=== PATIENT | male | born 1960 | race Caucasian/White ===

== ENCOUNTER 2019-12-17 08:33 | Inpatient (IN) | payer MEDICAID, SELFPAY ==
[~2019-12-17] VITALS: Ht 182.9 cm; Wt 79.8 kg
--- NOTE | 2019-12-17 09:04 | NUR ---
KILN BURNER HELPER: PT TO ROOM FROM LOBBY
[2019-12-17 09:08] LABS: BASOPHILS % (AUTO) 1 % (0-1); EOSINOPHILS # (AUTO) 0.26 x10^3/uL (0-0.4); EOSINOPHILS % (AUTO) 4 % (1-7); LYMPHOCYTES # (AUTO) 1.84 x10^3/uL (1-3.4); LYMPHOCYTES % (AUTO) 27 % (22-44); MD NO; MEAN CORPUSCULAR HEMOGLOBIN 32.6 pg (27.5-34.5); MEAN CORPUSCULAR HGB CONC 33.7 g/dL (33.2-36.2); MEAN CORPUSCULAR VOLUME 96.9 fL (81-97); MEAN PLATELET VOLUME 9.9 fL (7.4-10.4); MONOCYTES # (AUTO) 0.63 x10^3/uL (0.2-0.8); MONOCYTES % (AUTO) 9 % (2-9); NEUTROPHILS # (AUTO) 3.95 x10^3/uL (1.8-6.8); NEUTROPHILS % (AUTO) 58 % (42-75); PLATELET COUNT 243 x10^3/uL (130-400); RED BLOOD COUNT 4.04 x10^6/uL (4.38-5.82); RED CELL DISTRIBUTION WIDTH 14.9 % (9.4-14.8)
[2019-12-17 09:21] LABS: ALBUMIN 3.7 g/dL (3.4-5.0); ANION GAP 7 mmol/L (5-15); CALCIUM 8.6 mg/dL (8.5-10.1); CHLORIDE 110 mmol/L (98-107); CREATININE 1.16 mg/dL (0.7-1.3)
--- NOTE | 2019-12-17 09:50 | NUR ---
PT WITH C/O LIGHTHEADINESS AND SOB BEGINNING TODAY WHILE AT WORK. PT DENIES CP AT THIS TIME. PT STATES HE HAS HX OF DVT AND WAS TAKING XARELTO. PT TO ALL MONITORS, ERMD IN TO EVAL PT, AWAITING ORDERS
--- NOTE | 2019-12-17 10:40 | NUR ---
PT UPDATED ON POC BY ERMD, PT NEEDING CTQA. PIV X2 INITIATED
[2019-12-17] MEDS ORDERED: ASPIRIN 81 MG TABLET CHEW PO ONE (11:00)
[2019-12-17] MEDS ORDERED: HEPARIN 5,000 UNITS/ML, 1ML IV ONE (11:00)
[2019-12-17] MEDS ORDERED: OMNIPAQUE 350 MG/ML, 100ML BOTTLE ONE (11:14)
[2019-12-17] MEDS ORDERED: HEPARIN 25,000 UNITS/250ML PMX 250 ML ONE (11:20)
[2019-12-17] MEDS ORDERED: HEPARIN 5,000 UNITS/ML, 1ML ONE (11:20)
[2019-12-17] MEDS ORDERED: ASPIRIN 81 MG TABLET CHEW ONE (11:21)
[2019-12-17] MEDS: HEPARIN 25,000 UNITS/250ML PMX 250 ML IV PRN (11:30)
[2019-12-17] MEDS ORDERED: SODIUM CHLORIDE FLUSH 10ML SYR IVF ONE (11:30)
[2019-12-17] MEDS ORDERED: AZITHROMYCIN 500 MG in SODIUM CHLORIDE 0.9% 250 ML IVPB ONE (11:30)
[2019-12-17] MEDS ORDERED: CEFTRIAXONE PMX 1GM/50ML 50 ML IVPB ONE (11:30)
--- NOTE | 2019-12-17 11:31 | NUR ---
HEPARIN GTT INITIATED, VERIFIED WITH ERMD WEIGHT BASED PROTOCOL TO BE USED. BC BEING DRAWN WILL HANG ABX ABLE
[2019-12-17] MEDS ORDERED: CEFTRIAXONE PMX 1GM/50ML 50 ML ONE (11:56)
[2019-12-17] MEDS ORDERED: ONDANSETRON 2MG/ML, 2ML IVPush PRN (12:00)
[2019-12-17] MEDS ORDERED: NITROGLYCERIN 0.4 MG BOTTLE (25 TABS) SL PRN (12:00)
[2019-12-17] MEDS ORDERED: LISINOPRIL 20 MG TABLET PO ONE (12:00)
[2019-12-17] MEDS ORDERED: LIDODERM 5% PATCH TD PRN (12:00)
[2019-12-17] MEDS ORDERED: NITROGLYCERIN 0.4 MG/SPRAY SL PRN (12:00)
[2019-12-17] MEDS ORDERED: ONDANSETRON ODT 4 MG PO PRN (12:00)
[2019-12-17] MEDS ORDERED: METHOCARBAMOL 500 MG TABLET PO PRN (12:00)
[2019-12-17] MEDS ORDERED: ACETAMINOPHEN 325 MG TABLET PO PRN (12:00)
[2019-12-17] MEDS ORDERED: hydrALAzine 20 MG/ML, 1ML IVPush PRN (12:00)
--- NOTE | 2019-12-17 12:57 | NUR ---
BREAK RN: RESTING QUIETLY IN [facility], NO DISTRESS
--- NOTE | 2019-12-17 13:36 | NUR ---
PT OFFERED ONE TIME LISINOPRIL DOSE, PT DECLINED, STATES HE TOOK HIS AM DOSE ALREADY
[2019-12-17] MEDS ORDERED: LISI40TA PO (13:37)
[2019-12-17] MEDS ORDERED: SIMV20TA19 PO (13:37)
[2019-12-17] MEDS ORDERED: OMEP-110 PO (13:37)
[2019-12-17 14:44] VITALS: BP 145/95
[2019-12-17] MEDS: D5%-0.45NACL+KCL 20MEQ 1,000 ML IV SCH (14:49)
[2019-12-17 15:33] VITALS: BP 145/95
[2019-12-17] MEDS: HEPARIN 5,000 UNITS/ML, 1ML IV PRN (17:56)
[2019-12-17 18:02] LABS: TROPONIN I 0.124 ng/mL (0.000-0.045)
[2019-12-17 21:00] VITALS: BP 157/96
[2019-12-17] MEDS: SIMVASTATIN 20 MG TABLET PO SCH (21:06)
[2019-12-18 00:20] LABS: TROPONIN I 0.123 ng/mL (0.000-0.045)
[2019-12-18 00:31] VITALS: BP 140/82
[2019-12-18] MEDS: D5%-0.45NACL+KCL 20MEQ 1,000 ML IV SCH ×2 (00:33→11:07)
[2019-12-18] MEDS: HEPARIN 25,000 UNITS/250ML PMX 250 ML IV PRN (01:55)
[2019-12-18 05:30] LABS: BASOPHILS # (AUTO) 0.09 x10^3/uL (0-0.1); BASOPHILS % (AUTO) 1 % (0-1); EOSINOPHILS # (AUTO) 0.27 x10^3/uL (0-0.4); EOSINOPHILS % (AUTO) 3 % (1-7); LYMPHOCYTES # (AUTO) 3.25 x10^3/uL (1-3.4); LYMPHOCYTES % (AUTO) 40 % (22-44); MD NO; MEAN CORPUSCULAR HEMOGLOBIN 31.8 pg (27.5-34.5); MEAN CORPUSCULAR HGB CONC 32.7 g/dL (33.2-36.2); MEAN CORPUSCULAR VOLUME 97.2 fL (81-97); MEAN PLATELET VOLUME 10.4 fL (7.4-10.4); MONOCYTES # (AUTO) 0.71 x10^3/uL (0.2-0.8); MONOCYTES % (AUTO) 9 % (2-9); NEUTROPHILS # (AUTO) 3.76 x10^3/uL (1.8-6.8); NEUTROPHILS % (AUTO) 47 % (42-75); PLATELET COUNT 233 x10^3/uL (130-400); RED BLOOD COUNT 3.95 x10^6/uL (4.38-5.82); RED CELL DISTRIBUTION WIDTH 15.1 % (9.4-14.8)
[2019-12-18 05:39] LABS: ALANINE AMINOTRANSFERASE 21 U/L (12-78); ALBUMIN 3.3 g/dL (3.4-5.0); ANION GAP 5 mmol/L (5-15); BILIRUBIN, DIRECT 0.1 mg/dL (0.1-0.2); CALCIUM 8.1 mg/dL (8.5-10.1); CHLORIDE 111 mmol/L (98-107); CREATININE 1.18 mg/dL (0.7-1.3)
[2019-12-18 05:49] LABS: ALKALINE PHOSPHATASE 61 U/L (45-117); BILIRUBIN,INDIRECT 0.4 mg/dL (0.0-2.0); BILIRUBIN,TOTAL 0.5 mg/dL (0.2-1.0); TOTAL PROTEIN 6.5 g/dL (6.4-8.2)
[2019-12-18] MEDS: OMEPRAZOLE 20 MG CAPSULE.DR PO SCH (06:02)
[2019-12-18 06:50] VITALS: BP 128/84
[2019-12-18 08:22] VITALS: BP 142/74
[2019-12-18] MEDS: LISINOPRIL 20 MG TABLET PO SCH (08:22)
[2019-12-18] MEDS ORDERED: REGADENOSON 0.4 MG/5 ML SYRINGE ONE (09:21)
[2019-12-18] MEDS ORDERED: CEFTRIAXONE PMX 1GM/50ML 50 ML IV SCH (11:00)
[2019-12-18] MEDS: HEPARIN 5,000 UNITS/ML, 1ML IV PRN (11:07)
[2019-12-18] MEDS ORDERED: AZITHROMYCIN 500 MG in SODIUM CHLORIDE 0.9% 250 ML IV SCH (12:00)
[2019-12-18 15:20] VITALS: BP 132/78
[2019-12-18 16:37] LABS: RAPID INFLUENZA A Negative (Negative); RAPID INFLUENZA B Negative (Negative)
[2019-12-18] MEDS ORDERED: SODIUM CHLORIDE 0.9%, 500ML IVBOLUS ONE (21:30)
[2019-12-18] MEDS ORDERED: SODIUM CHLORIDE 0.9% 1,000 ML IV SCH (21:30)
[2019-12-18] MEDS: SIMVASTATIN 20 MG TABLET PO SCH (21:41)
[2019-12-18] MEDS: FLUTICASONE NASAL SPRAY 16GM NAS SCH (21:41)
[2019-12-18 21:48] VITALS: BP 129/76
[2019-12-19] MEDS: HEPARIN 5,000 UNITS/ML, 1ML IV PRN (00:59)
[2019-12-19] MEDS: D5%-0.45NACL+KCL 20MEQ 1,000 ML IV SCH (00:59)
[2019-12-19] MEDS: HEPARIN 25,000 UNITS/250ML PMX 250 ML IV PRN (01:03)
[2019-12-19 01:07] VITALS: BP 139/81
[2019-12-19] MEDS: OMEPRAZOLE 20 MG CAPSULE.DR PO SCH (05:02)
[2019-12-19 07:29] LABS: BASOPHILS # (AUTO) 0.08 x10^3/uL (0-0.1); BASOPHILS % (AUTO) 1 % (0-1); EOSINOPHILS # (AUTO) 0.28 x10^3/uL (0-0.4); EOSINOPHILS % (AUTO) 4 % (1-7); LYMPHOCYTES # (AUTO) 2.26 x10^3/uL (1-3.4); LYMPHOCYTES % (AUTO) 35 % (22-44); MD NO; MEAN CORPUSCULAR HEMOGLOBIN 31.9 pg (27.5-34.5); MEAN CORPUSCULAR HGB CONC 32.9 g/dL (33.2-36.2); MEAN CORPUSCULAR VOLUME 96.8 fL (81-97); MEAN PLATELET VOLUME 9.9 fL (7.4-10.4); MONOCYTES # (AUTO) 0.63 x10^3/uL (0.2-0.8); MONOCYTES % (AUTO) 10 % (2-9); NEUTROPHILS # (AUTO) 3.22 x10^3/uL (1.8-6.8); NEUTROPHILS % (AUTO) 50 % (42-75); PLATELET COUNT 229 x10^3/uL (130-400); RED BLOOD COUNT 4.05 x10^6/uL (4.38-5.82); RED CELL DISTRIBUTION WIDTH 15.2 % (9.4-14.8)
[2019-12-19 07:41] LABS: ANION GAP 3 mmol/L (5-15); CHLORIDE 113 mmol/L (98-107); CREATININE 1.07 mg/dL (0.7-1.3)
[2019-12-19 08:27] VITALS: BP 137/69
[2019-12-19] MEDS: FLUTICASONE NASAL SPRAY 16GM NAS SCH (08:30)
[2019-12-19] MEDS: LISINOPRIL 20 MG TABLET PO SCH (08:30)
[2019-12-19] MEDS ORDERED: AZIT500T10 PO (08:36)
[2019-12-19] MEDS ORDERED: RIVA15TA PO (08:36)
[2019-12-19] MEDS ORDERED: AZITHROMYCIN 500 MG TABLET PO SCH (09:00)
[2019-12-19] MEDS ORDERED: RIVAROXABAN 15 MG TABLET PO SCH ×2 (09:00)
[2020-01-09] MEDS ORDERED: RIVAROXABAN 20 MG TABLET PO SCH (06:00)
== END 2019-12-19 09:35 | disposition home or self-care (01) | DRG 190 ==
LOC: ED 10:11 → SUATTDRO 11:27 → EDIP 11:52 → 5SO 14:35 → DCLOUNGE 12-19 09:26
PROVIDERS: ADMIT Hospitalist; ATTEND Internal Medicine
DX: J44.0 Chronic obstructive pulmonary disease with (acute) lower respiratory infection (principal); J15.9 Unspecified bacterial pneumonia; I82.412 Acute embolism and thrombosis of left femoral vein; I24.9 Acute ischemic heart disease, unspecified; D64.9 Anemia, unspecified; E78.5 Hyperlipidemia, unspecified; F10.21 Alcohol dependence, in remission; G89.29 Other chronic pain; M54.9 Dorsalgia, unspecified; I10 Essential (primary) hypertension; Z86.718 Personal history of other venous thrombosis and embolism; Z87.891 Personal history of nicotine dependence; J40 Bronchitis, not specified as acute or chronic
CPT/HCPCS: 36415; 71046; 71275; 78452; 80048; 80076; 82040; 83605; 84145; 84443; 84484; 85025; 85520; 87040; 87400; 93005; 93017; 93306; G0378; J0456; J0696; J1644; J2785; Q9967; A9502; J3480; J7050

== ENCOUNTER 2020-02-01 15:28 | Emergency (ER) | payer MEDICAID ==
[~2020-02-01] VITALS: Ht 182.9 cm; Wt 86.0 kg
[~2020-02-01 15:28] MED LIST: AZIT500T10 PO; LISI40TA PO; OMEP-110 PO; RIVA15TA PO; SIMV20TA19 PO
[2020-02-01 15:31] VITALS: BP 143/89
--- NOTE | 2020-02-01 16:43 | NUR ---
COAL BRIQUETTE MACHINE OPERATOR: PT TO ROOM FROM [facility]
--- NOTE | 2020-02-01 17:53 | NUR ---
REVIEWED DC INSTRUCTIONS WITH PT, UNDERSTANDING VERBALIZED. PT LEFT AMB, WITH KNEE IMMOBILIZER IN PLACE.
== END 2020-02-01 17:55 | disposition home or self-care (01) ==
LOC: ED 17:17
DX: M25.562 Pain in left knee (principal); Z86.718 Personal history of other venous thrombosis and embolism; I10 Essential (primary) hypertension; X50.1XXA Overexertion from prolonged static or awkward postures, initial encounter; Y93.89 Activity, other specified; Y92.830 Public park as the place of occurrence of the external cause; Y99.8 Other external cause status
CPT/HCPCS: 29505; 99283

== ENCOUNTER 2020-02-26 10:05 | Outpatient (CLI) | payer MEDICAID ==
[2020-02-26] MEDS ORDERED: RIVA20TA PO (11:26)
[2020-02-26] MEDS ORDERED: LISI-167 PO (11:26)
[2020-02-26] MEDS ORDERED: ACET-1600 PO (11:26)
== END 2020-02-26 23:59 | disposition home or self-care (01) ==
LOC: STAR 10:05
PROVIDERS: ATTEND Orthopaedic Surgery
DX: Z11.59 Encounter for screening for other viral diseases (principal)
CPT/HCPCS: U0001-CS

== ENCOUNTER 2020-03-03 10:07 | Day surgery (SDC) | payer MEDICAID ==
[~2020-03-03] VITALS: Ht 182.9 cm; Wt 86.8 kg
[~2020-03-03 10:07] MED LIST changes: +ACET-1600 PO; +LIDOCAINE 1%, 20ML ONE; +LISI-167 PO; +RIVA20TA PO; +ROPIvacaine/PF 0.5%, 30 ML ONE
[2020-03-03] MEDS ORDERED: CHLORHEXIDINE 15 ML UDC MM STA (10:27)
[2020-03-03 10:28] VITALS: BP 167/84
[2020-03-03] MEDS ORDERED: CHLORHEXIDINE 15 ML UDC ONE (10:31)
[2020-03-03] MEDS ORDERED: LACTATED RINGERS 1,000 ML IV ONE (10:33)
[2020-03-03] MEDS ORDERED: LIDOCAINE-MPF 1%, 2ML INFIL STA (10:34)
[2020-03-03] MEDS ORDERED: MIDAZOLAM 1 MG/ML, 2ML ONE (11:28)
[2020-03-03] MEDS ORDERED: FENTANYL PF 250 MCG/5ML ONE (11:28)
[2020-03-03] MEDS ORDERED: CEFAZOLIN 1,000 MG ONE ×2 (11:29)
[2020-03-03] MEDS ORDERED: PROPOFOL 10 MG/ML, 20ML ONE (11:29)
[2020-03-03] MEDS ORDERED: ONDANSETRON 2MG/ML, 2ML IVPush PRN (12:00)
[2020-03-03] MEDS ORDERED: morphine SULFATE 10 MG/ML, 1ML IVPush PRN (12:00)
[2020-03-03] MEDS ORDERED: ACETAMINOPHEN 325 MG TABLET PO PRN (12:00)
[2020-03-03] MEDS ORDERED: HYDROmorphone 1 MG/ML, 1ML INJ IVPush PRN (12:00)
[2020-03-03] MEDS ORDERED: FENTANYL PF 100 MCG/2ML IV PRN (12:00)
[2020-03-03] MEDS ORDERED: hydrALAzine 20 MG/ML, 1ML IV PRN (12:00)
[2020-03-03] MEDS ORDERED: MEPERIDINE/PF 25MG/0.5ML IVPush PRN (12:00)
[2020-03-03] MEDS ORDERED: LABETALOL 5MG/ML, 20ML IV PRN (12:00)
[2020-03-03] MEDS ORDERED: OXYcodone 5 MG/5 ML ORAL.SOL UDC PO PRN (12:00)
[2020-03-03] MEDS ORDERED: KETOROLAC 30 MG/1 ML ONE (12:06)
== END 2020-03-03 14:00 | disposition home or self-care (01) ==
LOC: OUT 10:07
PROVIDERS: ATTEND Orthopaedic Surgery
DX: S83.212A Bucket-handle tear of medial meniscus, current injury, left knee, initial encounter (principal); M22.42 Chondromalacia patellae, left knee; I10 Essential (primary) hypertension; E78.5 Hyperlipidemia, unspecified; K21.9 Gastro-esophageal reflux disease without esophagitis; M19.90 Unspecified osteoarthritis, unspecified site; Z79.01 Long term (current) use of anticoagulants; Z79.899 Other long term (current) drug therapy; Z87.891 Personal history of nicotine dependence; Z86.718 Personal history of other venous thrombosis and embolism; Z82.49 Family history of ischemic heart disease and other diseases of the circulatory system; X58.XXXA Exposure to other specified factors, initial encounter; Y93.89 Activity, other specified; Y92.89 Other specified places as the place of occurrence of the external cause; Y99.8 Other external cause status
CPT/HCPCS: 29881; J0690; J1885; J2250; J2704; J2795; J3010; J7120

== ENCOUNTER 2020-03-07 12:26 | Inpatient (IN) | payer MEDICAID ==
[~2020-03-07] VITALS: Ht 182.9 cm; Wt 88.3 kg
[~2020-03-07 12:26] MED LIST changes: -LIDOCAINE 1%, 20ML ONE; -ROPIvacaine/PF 0.5%, 30 ML ONE
--- NOTE | 2020-03-07 13:06 | NUR ---
PT STATES RECENT LT KNEE SURGERY, STATES HAS BEEN OFF BLOOD THINNER MEDICATION X1 WEEK. PT STATES HX OF DVT, AND STATES NEW ONSET LT LE SWELLING AND PAIN STARTING THIS AM. PT ALSO STATES SOME CP AND SOB WITH EXERTION. ER PA-C AT BEDSIDE FOR ASSESSMENT. PT PLACED ON MONITORS. WILL FOLLOW ORDERS.
[2020-03-07 13:11] LABS: BASOPHILS # (AUTO) 0.07 x10^3/uL (0-0.1); BASOPHILS % (AUTO) 1 % (0-1); EOSINOPHILS # (AUTO) 0.19 x10^3/uL (0-0.4); EOSINOPHILS % (AUTO) 3 % (1-7); LYMPHOCYTES # (AUTO) 1.92 x10^3/uL (1-3.4); LYMPHOCYTES % (AUTO) 27 % (22-44); MD NO; MEAN CORPUSCULAR HEMOGLOBIN 32.2 pg (27.5-34.5); MEAN CORPUSCULAR VOLUME 97.5 fL (81-97); MEAN PLATELET VOLUME 9.9 fL (7.4-10.4); MONOCYTES # (AUTO) 0.56 x10^3/uL (0.2-0.8); MONOCYTES % (AUTO) 8 % (2-9); NEUTROPHILS % (AUTO) 62 % (42-75); PLATELET COUNT 247 x10^3/uL (130-400); RED BLOOD COUNT 4.09 x10^6/uL (4.38-5.82); RED CELL DISTRIBUTION WIDTH 13.3 % (9.4-14.8)
[2020-03-07 13:21] LABS: PROTHROMBIN TIME 10.6 Seconds (9.6-11.5)
[2020-03-07 13:22] LABS: ANION GAP 7 mmol/L (5-15); CALCIUM 8.9 mg/dL (8.5-10.1); CHLORIDE 110 mmol/L (98-107)
[2020-03-07 13:27] LABS: TROPONIN I 0.177 ng/mL (0.000-0.045)
[2020-03-07] MEDS ORDERED: SODIUM CHLORIDE FLUSH 10ML SYR IVF ONE (13:30)
--- NOTE | 2020-03-07 14:19 | NUR ---
PT RESTING IN BED, REMAINS ON MONITORS, VSS. PT AWIATING CT. PT IS AWARE OF POC. NO DISTRESS, CONT O MONITOR.
--- NOTE | 2020-03-07 14:52 | NUR ---
PT RESTING IN BED AFTER CT, AWAITING RESULTS. PT REMAINS ON MONITORS, VSS. CONT TO MONITOR.
[2020-03-07] MEDS ORDERED: OMNIPAQUE 350 MG/ML, 75ML BOTTLE ONE (14:53)
--- NOTE | 2020-03-07 15:30 | NUR ---
PT RESTING IN BED, REMAINS ON MONITORS. AWAITING ALL RESULTS. CONT TO MONITOR.
[2020-03-07] MEDS ORDERED: ASPIRIN 325 MG TABLET ONE (16:17)
[2020-03-07] MEDS ORDERED: ACETAMINOPHEN 325 MG TABLET PO PRN (16:30)
[2020-03-07] MEDS ORDERED: LABETALOL 5MG/ML, 20ML IVPush PRN (16:30)
[2020-03-07] MEDS ORDERED: ASPIRIN 325 MG TABLET PO ONE (16:30)
[2020-03-07] MEDS ORDERED: OXYcodone/APAP 5/325MG TABLET PO PRN (16:30)
--- NOTE | 2020-03-07 16:45 | NUR ---
PT RESTING IN BED, NO DISTRESS. PT REMAINS ON MONITORS, VSS. PT TO BE [facility] ADMIT. PT AWARE OF POC. CONT TO MONITOR.
--- NOTE | 2020-03-07 17:23 | NUR ---
REPORT GIVEN TO SHERICE VASQUES. PT OK TO TRANSFER TO FLOOR.
--- NOTE | 2020-03-07 17:28 | NUR ---
PT TRANSFERED TO FLOOR. FLOOR RN AWARE, PT STILL NEEDS URINE SAMPLE SENT. PT HAS ALL OWN BELONGINGS AT TIME OF TRANSFER.
[2020-03-07] MEDS ORDERED: RIVAROXABAN 20 MG TABLET PO SCH (18:00)
[2020-03-07 18:02] VITALS: BP 165/89
[2020-03-07] MEDS ORDERED: CYCL5TAB PO (18:15)
[2020-03-07 19:00] VITALS: BP 136/86
[2020-03-07 19:40] LABS: AMPHETAMINE SCREEN, URINE Negative (Negative); BARBITURATE SCREEN, URINE Negative (Negative); BENZODIAZEPINE SCREEN, URINE Negative (Negative); CANNABINOID SCREEN, URINE Negative (Negative); COCAINE SCREEN, URINE Negative (Negative); METHADONE SCREEN, URINE Negative (Negative); OPIATE SCREEN, URINE Negative (Negative)
[2020-03-07] MEDS ORDERED: SIMVASTATIN 20 MG TABLET PO SCH (21:00)
[2020-03-08 01:03] LABS: TROPONIN I 0.177 ng/mL (0.000-0.045)
[2020-03-08 01:46] VITALS: BP 139/79
[2020-03-08 07:40] LABS: BASOPHILS # (AUTO) 0.06 x10^3/uL (0-0.1); BASOPHILS % (AUTO) 1 % (0-1); EOSINOPHILS # (AUTO) 0.24 x10^3/uL (0-0.4); EOSINOPHILS % (AUTO) 3 % (1-7); LYMPHOCYTES # (AUTO) 2.27 x10^3/uL (1-3.4); LYMPHOCYTES % (AUTO) 29 % (22-44); MD NO; MEAN CORPUSCULAR HEMOGLOBIN 32.4 pg (27.5-34.5); MEAN CORPUSCULAR HGB CONC 33.1 g/dL (33.2-36.2); MEAN CORPUSCULAR VOLUME 97.8 fL (81-97); MONOCYTES % (AUTO) 9 % (2-9); NEUTROPHILS # (AUTO) 4.66 x10^3/uL (1.8-6.8); NEUTROPHILS % (AUTO) 59 % (42-75); PLATELET COUNT 235 x10^3/uL (130-400); RED CELL DISTRIBUTION WIDTH 13.4 % (9.4-14.8)
[2020-03-08 07:46] VITALS: BP 132/82
[2020-03-08 07:52] LABS: ALANINE AMINOTRANSFERASE 23 U/L (12-78); ALBUMIN 3.7 g/dL (3.4-5.0); ANION GAP 6 mmol/L (5-15); CALCIUM 8.6 mg/dL (8.5-10.1); CHLORIDE 110 mmol/L (98-107); CREATININE 1.22 mg/dL (0.7-1.3)
[2020-03-08 07:54] LABS: ALKALINE PHOSPHATASE 55 U/L (45-117); BILIRUBIN,TOTAL 0.6 mg/dL (0.2-1.0); TOTAL PROTEIN 7.6 g/dL (6.4-8.2)
[2020-03-08] MEDS ORDERED: LISINOPRIL 10 MG TABLET PO SCH (09:00)
[2020-03-08] MEDS ORDERED: ASPIRIN 81 MG TABLET CHEW PO SCH (09:00)
[2020-03-08] MEDS ORDERED: OMEPRAZOLE 20 MG CAPSULE.DR PO SCH (09:00)
[2020-03-08 12:51] VITALS: BP 123/69
== END 2020-03-08 13:55 | disposition home or self-care (01) | DRG 313 ==
LOC: ED 15:12 → EDIP 17:02 → 5SO 17:22 → EDIP 17:24 → 5SO 17:26 → DCLOUNGE 03-08 13:40
PROVIDERS: ADMIT Internal Medicine; ATTEND Internal Medicine
DX: R07.89 Other chest pain (principal); I82.512 Chronic embolism and thrombosis of left femoral vein; I82.532 Chronic embolism and thrombosis of left popliteal vein; D68.69 Other thrombophilia; I82.562 Chronic embolism and thrombosis of left calf muscular vein; E78.5 Hyperlipidemia, unspecified; I10 Essential (primary) hypertension; Z66 Do not resuscitate; K21.9 Gastro-esophageal reflux disease without esophagitis; R79.89 Other specified abnormal findings of blood chemistry; Z86.74 Personal history of sudden cardiac arrest; Z87.891 Personal history of nicotine dependence
CPT/HCPCS: 36415; 71045; 71275; 80048; 80053; 80307; 82040; 83880; 84484; 85025; 85610; 85730; 93005; 99285; G0378; Q9967

== ENCOUNTER 2020-03-26 06:23 | Emergency (ER) | payer MEDICAID ==
[~2020-03-26] VITALS: Ht 182.9 cm; Wt 88.4 kg
[~2020-03-26 06:23] MED LIST changes: +CYCL5TAB PO
--- NOTE | 2020-03-26 06:37 | NUR ---
EKG DONE IN TRIAGE.
--- NOTE | 2020-03-26 06:49 | NUR ---
PT TO ED WITH C/O PRODUCTIVE (CLEAR SPUTUM) COUGH, BODY ACHES, CHILLS, AND SORE THROAT. HE DENIES ANY SHORTNESS OF BREATH. UNKNOWN SICK CONTACTS BUT REPORTS NEW RESIDENTS AT THE [facility]. PLACED ON FISH DRESSING MACHINE FEEDER AND CONTINUOUS PULSE OX.
--- NOTE | 2020-03-26 06:52 | NUR ---
REPORT TO JA VASQUES.
[2020-03-26] MEDS ORDERED: ALBUTEROL SULFATE 2.5 MG/3 ML NPPB ONE (07:00)
--- NOTE | 2020-03-26 07:08 | NUR ---
report from danielle, discussed poc deanne donahue
[2020-03-26] MEDS ORDERED: ALBUTEROL/IPRATROPIUM 2.5MG/0.5MG, 3 ML ONE (07:17)
--- NOTE | 2020-03-26 07:23 | NUR ---
PT GIVEN BLANKET, BREATHING TREATMENT IN PROCESS.
[2020-03-26] MEDS ORDERED: ALBUTEROL SULFATE 2.5 MG/3 ML ONE (07:30)
[2020-03-26] MEDS ORDERED: DEXAMETHASONE 4 MG TABLET ONE ×2 (08:11→08:13)
[2020-03-26 08:20] VITALS: BP 119/64
--- NOTE | 2020-03-26 08:21 | NUR ---
Patient/Caregiver given discharge instructions and they have confirmed that they understand the instructions. Patient ambulatory with steady gait.
[2020-03-26] MEDS ORDERED: DEXAMETHASONE 1 MG TABLET PO ONE (08:30)
== END 2020-03-26 08:25 | disposition home or self-care (01) ==
LOC: ED 07:33
DX: B34.9 Viral infection, unspecified (principal); Z20.828 Contact with and (suspected) exposure to other viral communicable diseases; R06.02 Shortness of breath; J02.9 Acute pharyngitis, unspecified; M79.10 Myalgia, unspecified site; I10 Essential (primary) hypertension; R94.31 Abnormal electrocardiogram [ECG] [EKG]; Z86.718 Personal history of other venous thrombosis and embolism
CPT/HCPCS: 71045; 93005; 94640; 99285; J7613; U0001

== ENCOUNTER 2020-09-27 19:09 | Emergency (ER) | payer MEDICAID, OTHER ==
[~2020-09-27] VITALS: Ht 182.9 cm; Wt 81.6 kg
[2020-09-27 19:18] VITALS: BP 151/84
[2020-09-27] MEDS ORDERED: LIDOCAINE-MPF 1%, 5ML INFIL ONE (19:30)
[2020-09-27] MEDS ORDERED: PLEASE ENTER HEIGHT AND WEIGHT MC SCH (19:30)
[2020-09-27] MEDS ORDERED: DIPH,PERTUSS(ACELL),TET VAC/PF 0.5 ML IM-VACC ONE (19:30)
[2020-09-27] MEDS ORDERED: LIDOCAINE-MPF 1%, 5ML ONE (19:49)
[2020-09-27] MEDS ORDERED: NEOSPORIN OINT. PKT 1 PACKET ONE (20:15)
== END 2020-09-27 20:22 ==
LOC: ED 20:16
DX: S61.215A Laceration without foreign body of left ring finger without damage to nail, initial encounter (principal); W26.9XXA Contact with unspecified sharp object(s), initial encounter; Y93.89 Activity, other specified; Y92.69 Other specified industrial and construction area as the place of occurrence of the external cause; Y99.0 Civilian activity done for income or pay
CPT/HCPCS: 12041; 99284

== ENCOUNTER 2020-10-04 09:20 | Emergency (ER) | payer MEDICAID ==
[~2020-10-04] VITALS: Ht 185.4 cm; Wt 83.1 kg
[2020-10-04 09:32] VITALS: BP 137/65
[2020-10-04] MEDS ORDERED: DIPH,PERTUSS(ACELL),TET VAC/PF 0.5 ML IM-VACC ONE (10:00)
== END 2020-10-04 10:08 | disposition home or self-care (01) ==
LOC: ED 10:05
DX: S61.215D Laceration without foreign body of left ring finger without damage to nail, subsequent encounter (principal); Z48.02 Encounter for removal of sutures; X58.XXXD Exposure to other specified factors, subsequent encounter
CPT/HCPCS: 99281

== ENCOUNTER 2021-01-02 15:39 | Inpatient (IN) | payer MEDICAID ==
[~2021-01-02] VITALS: Ht 182.9 cm; Wt 85.8 kg
[~2021-01-02 15:39] MED LIST changes: -LISI40TA PO; +LISI40TA9 PO
--- NOTE | 2021-01-02 17:30 | NUR ---
head setter: pt from lobby to room 43
--- NOTE | 2021-01-02 18:08 | NUR ---
meeting planner completed at this time. Chart marked for review after radiology result reviewed.
--- NOTE | 2021-01-02 18:15 | NUR ---
Pt provided a urinal at this time per his request. Offered to have him use the restroom and he states he would rather not walk right now.
--- NOTE | 2021-01-02 18:29 | NUR ---
Pt with new labs ordered at this time. cytometry technologist in to draw pt.
[2021-01-02 18:42] LABS: BASOPHILS % (AUTO) 1 % (0-1); EOSINOPHILS % (AUTO) 2 % (1-7); LYMPHOCYTES % (AUTO) 33 % (22-44); MEAN CORPUSCULAR HEMOGLOBIN 31.8 pg (27.5-34.5); MEAN CORPUSCULAR HGB CONC 34.1 g/dL (33.2-36.2); MEAN PLATELET VOLUME 9.8 fL (7.4-10.4); MONOCYTES % (AUTO) 9 % (2-9); NEUTROPHILS % (AUTO) 56 % (42-75); PLATELET COUNT 214 x10^3/uL (130-400); RED BLOOD COUNT 4.22 x10^6/uL (4.38-5.82); RED CELL DISTRIBUTION WIDTH 13.6 % (9.4-14.8)
[2021-01-02 18:45] LABS: MD NO
--- NOTE | 2021-01-02 18:48 | NUR ---
Report given to CAPRICE Winter and care transferred. Lab results still pending.
--- NOTE | 2021-01-02 18:49 | NUR ---
REPORT FROM [facility], [facility] TRANSFER OF CARE AT THIS TIME
[2021-01-02 18:54] LABS: ALANINE AMINOTRANSFERASE 26 U/L (12-78); ALBUMIN 3.7 g/dL (3.4-5.0); CALCIUM 8.7 mg/dL (8.5-10.1); CHLORIDE 110 mmol/L (98-107)
[2021-01-02 18:55] LABS: INTERNATIONAL NORMALIZED RATIO 1.06 (0.93-1.1); PROTHROMBIN TIME 11.3 Seconds (9.6-11.5)
[2021-01-02 18:57] LABS: ALKALINE PHOSPHATASE 62 U/L (45-117); BILIRUBIN,TOTAL 0.4 mg/dL (0.2-1.0); TOTAL PROTEIN 7.6 g/dL (6.4-8.2)
[2021-01-02 19:02] LABS: ANION GAP 5 mmol/L (5-15)
--- NOTE | 2021-01-02 19:30 | NUR ---
PT UP TO PHONE MENS INTERMEDIATE TO KEEP THEM UPDATED ON HIS CARE
--- NOTE | 2021-01-02 20:09 | NUR ---
PIV STARTED PT TOLERATED WELL, TECH AT BEDSIDE FOR EKG AT THIS TIME PER DR PADRON.
[2021-01-02 20:23] LABS: TROPONIN I 0.113 ng/mL (0.000-0.045)
--- NOTE | 2021-01-02 20:26 | NUR ---
PT BACK FROM CT AT THIS TIME
--- NOTE | 2021-01-02 21:55 | NUR ---
REPORT TO SUMANTH VASQUES. PT READY FOR TRANSFER TO [facility]
[2021-01-02] MEDS ORDERED: IBUPROFEN 600 MG TABLET PO PRN (22:00)
[2021-01-02 22:13] VITALS: BP 175/91
[2021-01-02] MEDS: ENOXAPARIN 80 MG/0.8 ML SQ SCH (22:30)
[2021-01-02] MEDS ORDERED: TIOT18CA INH (22:31)
[2021-01-02] MEDS ORDERED: MELATONIN 5 MG TABLET PO PRN (23:00)
[2021-01-02] MEDS ORDERED: DOCUSATE 100 MG CAPSULE PO PRN (23:00)
[2021-01-02] MEDS ORDERED: hydrALAzine 20 MG/ML, 1ML IVPush PRN (23:00)
[2021-01-02] MEDS: ACETAMINOPHEN 325 MG TABLET PO PRN (23:15)
[2021-01-02] MEDS ORDERED: OMNIPAQUE 350 MG/ML, 100ML BOTTLE ONE (23:44)
[2021-01-03 01:31] LABS: TROPONIN I 0.106 ng/mL (0.000-0.045)
[2021-01-03 01:34] VITALS: BP 116/73
[2021-01-03 04:45] LABS: HCT (SEDRATE) 39.6 % (39.2-51.8)
[2021-01-03 04:46] LABS: BASOPHILS % (AUTO) 2 % (0-1); EOSINOPHILS % (AUTO) 3 % (1-7); LYMPHOCYTES % (AUTO) 35 % (22-44); MEAN CORPUSCULAR HEMOGLOBIN 31.2 pg (27.5-34.5); MEAN CORPUSCULAR HGB CONC 33.4 g/dL (33.2-36.2); MEAN PLATELET VOLUME 10.2 fL (7.4-10.4); MONOCYTES % (AUTO) 10 % (2-9); NEUTROPHILS % (AUTO) 52 % (42-75); PLATELET COUNT 206 x10^3/uL (130-400); RED BLOOD COUNT 4.26 x10^6/uL (4.38-5.82); RED CELL DISTRIBUTION WIDTH 13.3 % (9.4-14.8)
[2021-01-03 04:55] LABS: MD NO
[2021-01-03 04:59] LABS: ANION GAP 5 mmol/L (5-15); CALCIUM 8.5 mg/dL (8.5-10.1); CHLORIDE 111 mmol/L (98-107); CREATININE 1.25 mg/dL (0.7-1.3)
[2021-01-03 06:45] VITALS: BP 120/75
[2021-01-03] MEDS: ACETAMINOPHEN 325 MG TABLET PO PRN (07:53)
[2021-01-03] MEDS: ENOXAPARIN 80 MG/0.8 ML SQ SCH (10:26)
[2021-01-03 12:43] VITALS: BP 145/86
== END 2021-01-03 16:37 | disposition home or self-care (01) | DRG 556 ==
LOC: ED 19:10 → EDIP 21:34 → 5SO 22:25 → DCLOUNGE 01-03 16:34
PROVIDERS: ADMIT Internal Medicine; ATTEND Family Medicine
DX: M79.652 Pain in left thigh (principal); D68.59 Other primary thrombophilia; I82.502 Chronic embolism and thrombosis of unspecified deep veins of left lower extremity; N17.9 Acute kidney failure, unspecified; I10 Essential (primary) hypertension; F19.11 Other psychoactive substance abuse, in remission; F10.11 Alcohol abuse, in remission; J43.9 Emphysema, unspecified; Z87.891 Personal history of nicotine dependence; Z79.01 Long term (current) use of anticoagulants
CPT/HCPCS: 36415; 71275; 80048; 80053; 83880; 84484; 85025; 85610; 85651; 85730; 93005; G0378; J1650; Q9967; J0360

== ENCOUNTER → 2021-01-04 | Outpatient (CLI) | payer MEDICAID ==
[~2021-01-04] MED LIST changes: +TIOT18CA INH
== END | disposition home or self-care (01) ==
LOC: RAD 07:30
PROVIDERS: ATTEND Internal Medicine Gastroenterology
DX: K21.9 Gastro-esophageal reflux disease without esophagitis (principal); K44.9 Diaphragmatic hernia without obstruction or gangrene; K57.90 Diverticulosis of intestine, part unspecified, without perforation or abscess without bleeding; K62.5 Hemorrhage of anus and rectum; R13.19 Other dysphagia; R12 Heartburn; K64.8 Other hemorrhoids; Z79.01 Long term (current) use of anticoagulants
CPT/HCPCS: 74220

== ENCOUNTER 2021-04-02 06:47 | Emergency (ER) | payer MEDICAID ==
[~2021-04-02] VITALS: Ht 182.9 cm; Wt 91.8 kg
[2021-04-02 06:52] VITALS: BP 159/77
--- NOTE | 2021-04-02 07:04 | NUR ---
PT AMBULATORY TO ROOM FROM TRIAGE, PT CHANGED INTO GOWN. MONITORS IN PLACE. PT C/O VARICOSE VEIN "BURSTING" OPEN ON L ANKLE. PAIN 10/17
--- NOTE | 2021-04-02 07:05 | NUR ---
PA AT BS
[2021-04-02] MEDS ORDERED: SILVER NITRATE STICK TP ONE ×2 (07:15→07:30)
--- NOTE | 2021-04-02 07:26 | NUR ---
Patient given discharge instructions and they have confirmed that they understand the instructions. Patient ambulatory with steady gait.
== END 2021-04-02 07:27 | disposition home or self-care (01) ==
LOC: ED 07:16
DX: I82.592 Chronic embolism and thrombosis of other specified deep vein of left lower extremity (principal); I83.892 Varicose veins of left lower extremity with other complications; I10 Essential (primary) hypertension; I25.2 Old myocardial infarction
CPT/HCPCS: 99282

== ENCOUNTER 2021-04-16 10:50 | Emergency (ER) | payer MEDICAID ==
[~2021-04-16] VITALS: Ht 182.9 cm; Wt 91.0 kg
--- NOTE | 2021-04-16 11:00 | NUR ---
OFELIA FROM [facility], REPORT TAKEN FROM EMS. PT C/O VARICOSE VEIN "BURST" TO RIGHT FOOT DURING SHOWER THIS AM, PT TAKES XARALTO. BLEEDING CONTROLLED EDGE BRUSHER WITH GAUZE DRESSING. BP AND SPO2 MONITORS IN PLACE. CALL LIGHT IN REACH. AWAITING PROVIDER AND ORDERS.
--- NOTE | 2021-04-16 12:00 | NUR ---
LATE ENTRY FOR 1200: PT SEEN AND EXAMINED BY AMINAH RAM. PT TO BE DISCHARGED, AWAITING ORDERS AND PAPERWORK FROM .
[2021-04-16] MEDS ORDERED: SILVER NITRATE STICK TP ONE ×2 (13:00→13:02)
--- NOTE | 2021-04-16 13:00 | NUR ---
dc orders received, pt up to bathroom to void prior to discharge, pt's wound opened spontaneously with ambulation with moderate bleeding. MD informed. pt back in bed, leg elevated. bleeding resolved at this time. MD to reassess.
[2021-04-16 13:27] VITALS: BP 141/86
[2021-04-16] MEDS ORDERED: NEOSPORIN OINT. PKT 1 PACKET ONE (13:58)
--- NOTE | 2021-04-16 14:06 | NUR ---
SILVER NITRATE APPLIED BY EDMD TO WOUND, FOOT REMAINS ELEVATED. NEOSPORIN AND PRESSURE DRESSING ORDERED BY NARCISA RIVERO AT BEDSIDE FOR DRESSING APPLICATION.
[2021-04-16] MEDS ORDERED: NEOSPORIN OINT. PKT 1 PACKET TP ONE (14:30)
--- NOTE | 2021-04-16 14:32 | NUR ---
pressure dressing applied, cms intact s/p dressing. bleeding subsided. pt ambulatory with steady gait, per edmd, crutches not indicated. pt given w/c escort to nd, [facility] staff to drive pt home.
== END 2021-04-16 14:33 | disposition home or self-care (01) ==
LOC: ED 12:08
DX: I83.12 Varicose veins of left lower extremity with inflammation (principal); I10 Essential (primary) hypertension; Z87.891 Personal history of nicotine dependence
CPT/HCPCS: 99281; 99283

== ENCOUNTER 2021-04-23 07:39 | Emergency (ER) | payer MEDICAID ==
[~2021-04-23] VITALS: Ht 182.9 cm; Wt 88.9 kg
[2021-04-23 07:43] VITALS: BP 164/84
--- NOTE | 2021-04-23 08:28 | NUR ---
GAS METER REPAIR SUPERVISOR: PT TO ROOM FROM LOBBY, GAIT SLOW AND STEADY
[2021-04-23] MEDS ORDERED: MICROFIBRILLAR COLLAGEN 1 GM TP ONE (08:54)
[2021-04-23] MEDS ORDERED: MICROFIBRILLAR COLLAGEN 0.5GM/PACK TP ONE (09:00)
== END 2021-04-23 09:24 | disposition home or self-care (01) ==
LOC: ED 09:15
DX: Z48.01 Encounter for change or removal of surgical wound dressing (principal); M79.672 Pain in left foot; I10 Essential (primary) hypertension; I25.2 Old myocardial infarction; Z86.718 Personal history of other venous thrombosis and embolism
CPT/HCPCS: 99282